=== PATIENT | female | born 1955 | race African-American/Black ===

== ENCOUNTER → 2018-05-03 | Outpatient (CLI) | payer BC ==
--- NOTE | 2018-05-04 08:26 | XCELERA REPORT ---
[address] [address] Lower Extremity Arterial Evaluation Name: MARIYA MACARIO Age: 62 yrs Gender: Female : 1955 Patient Status: Outpatient Patient Location: [facility] Study Date: 05/03/2018 10:55 AM Procedure: A color flow and duplex scan of the lower extremity arteries was performed bilaterally with velocity and waveform anaylsis. Reason For Study: PAD Ordering Physician: NITA BABIN Performed By: Josemanuel Costello Measurements and Calculations Right Left OPHTHALMIC TECH PSV 129.6 169.9 cm/sec Prox PFA PSV -182.7 -441.1cm/sec Prox SFA PSV 10.2 168.9 cm/sec Mid SFA PSV -170.3cm/sec Dist SFA PSV 0.00 -89.9 cm/sec Prox Pop A PSV 53.4 162.4 cm/sec Dist Pop A PSV -84.0 cm/sec Dist GIRISH PSV 21.2 102.0 cm/sec Prox DIE OPERATOR PSV 13.9 15.7 cm/sec Mid DIE OPERATOR PSV 11.4 36.8 cm/sec Dist DIE OPERATOR PSV 11.8 25.4 cm/sec Mid Nataly A PSV 0.20 cm/sec Dist Nataly A 9.2 0.20 cm/sec PSV Jayce Pedis PSV 21.6 71.6 cm/sec Right Side Arterial Evaluation Normal velocity and triphasic waveforms noted in the Common Femoral artery. Obstructed Femoral. Reconstitution in the Popliteal with low normal velocity diminishing to low velocity in the infrageniculate vessels arteries. Ankle Brachial index not obtained, patient in [place] to get back to work. Left Side Arterial Evaluation Normal velocity and triphasic waveforms noted in the Common Femoral artery. High velocity in the Deep Femoral suggesting high grade stenosis. Triphasic with normal velocities in the Femoral to Anterior Tibial artery. Biphasic with low velocity in the Posterior Tibial artery. Ankle Brachial index not obtained, patient in [place] to get back to work. Interpretation Summary Severe hemodynamically significant lesions in the right lower extremity only, on duplex imaging, at rest. Mild hemodynamically significant lesions in the left lower extremity only, on duplex imaging, at rest. Really severe disease on right , chiefly due to Femoral occlusion, mild on left, due to persistent flow in Anterior Tibial, in spite of significant disease in the Posterior tibial artery. : NITA BABIN > Nita Babin
== END ==
LOC: SP 10:28
PROVIDERS: ATTEND Surgery
DX: I73.9 Peripheral vascular disease, unspecified (principal)
CPT/HCPCS: 93925

== ENCOUNTER → 2018-05-19 | Outpatient (CLI) | payer BC ==
[2018-05-19 11:58] LABS: APPEARANCE,URINE CLEAR; BILIRUBIN,URINE NEGATIVE (NEGATIVE); COLOR,URINE YELLOW; GLUCOSE, URINE NEGATIVE (NEGATIVE); KETONES,URINE NEGATIVE (NEGATIVE); LEUKOCYTE ESTERASE,URINE NEGATIVE (NEGATIVE); NITRITE,URINE POSITIVE (NEGATIVE); PROTEIN,URINE NEGATIVE (NEGATIVE); URINE SPECIFIC GRAVITY 1.011; UROBILINOGEN,URINE NEGATIVE mg/dL (<2.0)
[2018-05-19 12:01] LABS: ABSOLUTE LYMPHOCYTES (AUTO) 1.5 10^3/uL (0.5-4.7); ABSOLUTE MONOCYTES (AUTO) 0.3 10^3/uL (0.1-1.4); ABSOLUTE NEUT (AUTO) 3.6 10^3/uL (1.7-8.2); BASOPHILS % (AUTO) 0.6 % (0-2); EOSINOPHILS % (AUTO) 0.4 % (0-6); HEMATOCRIT 40.3 % (36.0-47.0); HEMOGLOBIN 13.9 g/dL (12.0-15.5); LYMPHOCYTES % (AUTO) 26.8 % (13-45); MEAN CORPUSCULAR HEMOGLOBIN 31.5 pg (27.0-33.4); MEAN CORPUSCULAR HGB CONC 34.5 g/dL (32.0-36.0); MEAN CORPUSCULAR VOLUME 91 fl (80-97); MONOCYTES % (AUTO) 6.4 % (3-13); PLATELET COUNT 182 10^3/uL (150-450); RED BLOOD COUNT 4.42 10^6/uL (3.72-5.28); RED CELL DISTRIBUTION WIDTH 14.2 % (11.5-14.0); SEGMENTED NEUTROPHILS % (AUTO) 65.8 % (42-78); TOTAL CELLS COUNTED % (AUTO) 100 %; WHITE BLOOD COUNT 5.5 10^3/uL (4.0-10.5)
[2018-05-19 12:18] LABS: ALANINE AMINOTRANSFERASE 33 U/L (9-52); ALBUMIN 4.5 g/dL (3.5-5.0); ALKALINE PHOSPHATASE 87 U/L (38-126); ANION GAP 7 (5-19); ASPARTATE AMINO TRANSFERASE 37 U/L (14-36); BILIRUBIN,DIRECT 0.3 mg/dL (0.0-0.4); BILIRUBIN,TOTAL 0.8 mg/dL (0.2-1.3); BLOOD UREA NITROGEN 15 mg/dL (7-20); CALCIUM 9.5 mg/dL (8.4-10.2); CARBON DIOXIDE 29 mmol/L (22-30); CHLORIDE 107 mmol/L (98-107); CHOLESTEROL 205.72 mg/dL (0-200); GLUCOSE 93 mg/dL (75-110); POTASSIUM 3.7 mmol/L (3.6-5.0); SODIUM 142.9 mmol/L (137-145); TOTAL PROTEIN 8.8 g/dL (6.3-8.2); TRIGLYCERIDES 52 mg/dL (<150); URIC ACID 5.3 mg/dL (2.5-7.5)
[2018-05-19 12:29] LABS: DIRECT LDL 71 mg/dL (<100)
[2018-05-19 12:32] LABS: FREE T4 (FREE THYROXINE) 1.52 ng/dL (0.78-2.19)
[2018-05-19 12:45] LABS: THYROID STIMULATING HORMONE 1.45 uIU/mL (0.47-4.68)
== END ==
LOC: OD 11:02
PROVIDERS: ATTEND Internal Medicine
DX: I16.0 Hypertensive urgency (principal)
CPT/HCPCS: 36415; 80053; 80061; 81001; 84439; 84443; 84550; 85025

== ENCOUNTER 2018-07-06 15:12 | Day surgery (SDC) | payer BC ==
[2018-07-06] MEDS ORDERED: FENTANYL CITRATE INJ/PF 100 MCG/2 ML AMPUL ONE (15:28)
[2018-07-06] MEDS ORDERED: DIPHENHYDRAMINE HCL 50 MG/ML VIAL ONE (15:28)
[2018-07-06] MEDS ORDERED: ONDANSETRON HCL INJ/PF 4 MG/2 ML SDV ONE (15:28)
[2018-07-06] MEDS ORDERED: GLUCAGON,HUMAN RECOMB 1 MG INJ ONE (15:29)
[2018-07-06] MEDS ORDERED: MIDAZOLAM 2 MG/2 ML INJ ONE (15:29)
[2018-07-06] MEDS ORDERED: EPINEPHRINE INJ 1 MG/10 ML DISP.SYRIN ONE (15:29)
[2018-07-06] MEDS ORDERED: NALOXONE HCL INJ/PF 0.4 MG/1 ML SDV ONE (15:29)
[2018-07-06] MEDS ORDERED: FLUMAZENIL INJ 0.5 MG/5 ML VIAL ONE (15:29)
--- NOTE | 2018-07-06 17:31 | Operative Report ---
Operative Report DATE OF SURGERY: 07/06/18 Operative Report: Pre-op diagnosis: Colon cancer screening Post-op diagnosis: 1. Descending colon polyp 2. Left-sided diverticulosis 3. Limited view of the colon Surgery: Colonoscopy with polypectomy Medications: Versed 2mg, Fentanyl 100mcg IV push Tissue removed: Colon polyp Procedure: After informed consent obtained from patient, conscious sedation was achieved. A digital rectal examination was performed and this was unremarkable. The colonoscope was inserted into the rectum and advanced to the cecum. The appendiceal orifice and the terminal ileum were both identified. The mucosa was examined into details as the colonoscope was slowly pulled out of the patient. The endoscope was retroflexed in the rectum. Patient tolerated the procedure well. Findings Cecum: View was limited due to retained stool Ascending colon: Limited view Transverse colon: Limited view Descending colon: 5-6 mm polyp removed with the cold snare. Multiple diverticuli noted Sigmoid colon: Multiple diverticuli noted. Limited view Rectum: Limited view Plan: Repeat colonoscopy using better prep OPERATION: .
[2018-07-06 18:21] VITALS: BP 154/64
== END 2018-07-06 18:15 | disposition home or self-care (01) ==
LOC: END 15:12
PROVIDERS: ATTEND Internal Medicine Gastroenterology
DX: Z12.11 Encounter for screening for malignant neoplasm of colon (principal); K57.30 Diverticulosis of large intestine without perforation or abscess without bleeding; D12.4 Benign neoplasm of descending colon; I73.9 Peripheral vascular disease, unspecified; E78.00 Pure hypercholesterolemia, unspecified; F17.210 Nicotine dependence, cigarettes, uncomplicated; Z86.718 Personal history of other venous thrombosis and embolism; Z79.01 Long term (current) use of anticoagulants; Z79.899 Other long term (current) drug therapy; Z88.5 Allergy status to narcotic agent
CPT/HCPCS: 45385; 88305 ×2; J2250; J3010; J0171; J1200; J1610; J2310; J2405; J3490

== ENCOUNTER 2018-08-03 15:05 | Day surgery (SDC) | payer BC ==
[2018-08-03] MEDS ORDERED: DIPHENHYDRAMINE HCL 50 MG/ML VIAL ONE (16:21)
[2018-08-03] MEDS ORDERED: FENTANYL CITRATE INJ/PF 100 MCG/2 ML AMPUL ONE (16:21)
[2018-08-03] MEDS ORDERED: ONDANSETRON HCL INJ/PF 4 MG/2 ML SDV ONE (16:21)
[2018-08-03] MEDS ORDERED: NALOXONE HCL INJ/PF 0.4 MG/1 ML SDV ONE (16:22)
[2018-08-03] MEDS ORDERED: EPINEPHRINE INJ 1 MG/10 ML DISP.SYRIN ONE (16:22)
[2018-08-03] MEDS ORDERED: GLUCAGON,HUMAN RECOMB 1 MG INJ ONE (16:22)
[2018-08-03] MEDS ORDERED: FLUMAZENIL INJ 0.5 MG/5 ML VIAL ONE (16:22)
[2018-08-03] MEDS: MIDAZOLAM 2 MG/2 ML INJ ONE ×2 (16:51→16:55)
--- NOTE | 2018-08-03 17:25 | Operative Report ---
Operative Report DATE OF SURGERY: 08/03/18 Operative Report: Pre-op diagnosis: Colon cancer screening, history of incomplete colonoscopy Post-op diagnosis: 1. Sigmoid colon polyp 2. Left-sided diverticulosis Surgery: Colonoscopy with polypectomy Medications: Versed 3mg, Fentanyl 100mcg IV push Tissue removed: Colon polyp Procedure: After informed consent obtained from patient, conscious sedation was achieved. A digital rectal examination was performed and this was unremarkable. The colonoscope was inserted into the rectum and advanced to the cecum. The appendiceal orifice and the terminal ileum were both identified. The mucosa was examined into details as the colonoscope was slowly pulled out of the patient. The endoscope was retroflexed in the rectum. Patient tolerated the procedure well. Findings Cecum: Normal Ascending colon: Normal Transverse colon: Normal Descending colon: Few diverticuli Sigmoid colon: Multiple diverticuli. 4 mm polyp removed with the cold snare Rectum: Normal except for internal hemorrhoids Plan: Await pathology. Repeat colonoscopy in 5 years OPERATION: .
[2018-08-03 19:16] VITALS: BP 138/62
== END 2018-08-03 18:33 | disposition home or self-care (01) ==
LOC: END 15:05
PROVIDERS: ATTEND Internal Medicine Gastroenterology
DX: Z12.11 Encounter for screening for malignant neoplasm of colon (principal); D12.5 Benign neoplasm of sigmoid colon; K57.30 Diverticulosis of large intestine without perforation or abscess without bleeding; K64.8 Other hemorrhoids; I10 Essential (primary) hypertension; Z88.5 Allergy status to narcotic agent
CPT/HCPCS: 45385; 88305 ×2; J2250; J3010; J0171; J1200; J1610; J2310; J2405; J3490

== ENCOUNTER → 2018-12-21 | Outpatient (CLI) | payer BC ==
--- NOTE | 2018-12-22 13:21 | XCELERA REPORT ---
[address] [address] Lower Extremity Arterial Evaluation Name: MARIYA MACARIO Age: 62 yrs Gender: Female : 1955 Patient Status: Outpatient Patient Location: [facility] Study Date: 12/21/2018 08:04 AM Procedure: A color flow and duplex scan of the lower extremity arteries was performed bilaterally with velocity and waveform anaylsis. Reason For Study: PAD Ordering Physician: NITA QUEZADA Performed By: Meme Rasmussen Measurements and Calculations Right Left DISPOSAL MAN PSV 111.9 166.0 cm/sec Prox PFA PSV -101.2 -116.9cm/sec Prox SFA PSV -165.0 -88.9 cm/sec Mid SFA PSV -123.6cm/sec Dist SFA PSV -50.6 cm/sec Dist Pop A PSV -42.9 -73.3 cm/sec Mid GIRISH PSV -19.8 -67.7 cm/sec Mid FOOD AND NUTRITION PROFESSOR PSV 14.7 55.0 cm/sec Jayce Pedis PSV 23.6 39.9 cm/sec Right Side Arterial Evaluation Normal velocity, moderate spectral broadening and biphasic waveforms noted in the Common Femoral artery. Occluded Femoral artery in mid to distal. Monophasic with spectral broadening, low velocity in the Popliteal and infrageniculate arteries. Ankle Brachial index not ordered. Left Side Arterial Evaluation Normal velocity, and triphasic waveforms noted in the Common Femoral artery. Biphasic with spectral broadening, low normal velocity in the Femoral to infrageniculate arteries. Ankle Brachial index not ordered. Interpretation Summary Severe hemodynamically significant lesions in the right lower extremity only, on duplex imaging, at rest. Moderate hemodynamically significant lesions in the left lower extremity only, on duplex imaging, at rest. Duplex findings of inflow disease with sequential, hemodynamically significant occlusio in the right Femoral artery. Arterial comprise at the level of the Femoral, with no focal stenosis seen, in the left Femoral artery. : NITA QUEZADA > Nita Quezada
== END ==
LOC: SP 07:35
PROVIDERS: ATTEND Surgery
DX: I70.213 Atherosclerosis of native arteries of extremities with intermittent claudication, bilateral legs (principal)
CPT/HCPCS: 93925